=== PATIENT | female | born 1955 | race Caucasian/White ===

== ENCOUNTER 2019-05-05 08:42 | Inpatient (IN) ==
[2019-04-28 17:01] LABS: Appearance,Urine CLEAR; Bacteria,Urine 0 /hpf (0); Bilirubin,Urine NEG (NEG); Color,Urine YELLOW; Culture Indicated,Urine NO; Glucose,Urine (UA) NEGATIVE (NEG); Ketones,Urine NEG (NEG); Leukocyte Esterase,Urine 25 /uL (NEG); Mucus,Urine FEW /hpf (0); Nitrate,Urine NEG (NEG); Protein,Urine NEG (NEG); Specific Gravity,Urine 1.018 (1.000-1.035); Urine Blood NEG mg/dL (<0.03); Urine RBC 1 /hpf (0-1); Urine Squamous Epithelial Cell 8 /hpf (0-4); Urine Transitional Epi Cells < 1 /hpf (0-2); Urine WBC 3 /hpf (0-4)
[2019-04-28 18:08] LABS: Basophils # (Auto) 0 K/mcL (0.0-0.3); Basophils % (Auto) 0.2 % (0.0-2.0); Eosinophils # (Auto) 0.1 K/mcL (0.0-0.7); Eosinophils % (Auto) 1.7 % (0.0-7.0); Granulocytes % (Auto) 53.8 % (38.0-78.0); Hematocrit 38.2 % (36.0-48.0); Hemoglobin 12.2 g/dL (12.0-15.0); Lymphocytes % (Auto) 34.8 % (15.5-49.0); Mean Cell Volume 77.7 fL (80.0-100.0); Mean Corpuscular HGB Conc 31.9 g/dL (31.0-36.0); Mean Platelet Volume 9.4 fL (7.4-10.4); Monocytes # (Auto) 0.8 K/mcL (0.1-0.9); Monocytes % (Auto) 9.5 % (1.0-12.0); Platelet Count 259 K/mcL (140-440); RBC 4.92 M/mcL (4.00-5.20); Red Cell Distribution Width 16.6 % (11.5-14.5); WBC 8.6 K/mcL (4.5-11.0)
[2019-04-28 18:21] LABS: Blood Urea Nitrogen 14 mg/dl (8-23); Calcium 9.4 mg/dl (8.6-10.4); Carbon Dioxide 27 mmol/L (22-30); Chloride 99 mmol/L (96-108); Glomerular Filtration Rate 96; Glucose 114 mg/dL (70-105)
[2019-04-28 18:36] LABS: Estimated Average Glucose(eAG) 154 mg/dL
[2019-04-28 18:41] LABS: Prothrombin Time 12.8 sec (11.9-14.5)
[~2019-05-05 08:42] MED LIST: 0.9 % SODIUM CHLORIDE 9 ML, KETOROLAC 30 MG, ROPIVACAINE HCL/PF 49.5 ML, EPINEPHrine 0.... IJ SCH; CELECOXIB 200 MG CAPSULE PO SCH; PREGABALIN 75 MG CAPSULE PO SCH; ceFAZolin 3 GM in DEXTROSE 5% IN WATER 50 ML IV SCH; oxyCODONE 10 MG TAB.ER.12H PO SCH
[2019-05-05] MEDS ORDERED: DEXAMETHASONE 10 MG/ML VIAL IV ONE (13:45)
[2019-05-05] MEDS ORDERED: TRANEXAMIC ACID 1,000 MG/10 ML VIAL IV ONE (13:45)
[2019-05-05] MEDS ORDERED: LIDOCAINE HCL/PF 100 MG/5 ML SYRINGE IV ONE (13:45)
[2019-05-05] MEDS ORDERED: MIDAZOLAM 2 MG/2 ML VIAL IV ONE (13:45)
[2019-05-05] MEDS ORDERED: ROPIVACAINE HCL/PF 20 ML VIAL IJ ONE (13:45)
[2019-05-05] MEDS ORDERED: PROPOFOL 200 MG/20 ML VIAL IV ONE (13:45)
[2019-05-05] MEDS ORDERED: GLYCOPYRROLATE 0.2 MG/ML VIAL IV ONE (13:45)
[2019-05-05] MEDS ORDERED: KETAMINE 100 MG/ML ML IV ONE (13:45)
[2019-05-05] MEDS ORDERED: ONDANSETRON 4 MG/2 ML VIAL IV ONE (13:45)
[2019-05-05] MEDS ORDERED: fentaNYL 100 MCG/2 ML VIAL IV ONE (13:45)
[2019-05-05] MEDS ORDERED: PHENYLEPHRINE 10 MG/ML VIAL IV ONE (13:45)
[2019-05-05] MEDS ORDERED: BENZOCAINE/MENTHOL 1 LOZENGE PO PRN ×2 (15:36→15:45)
[2019-05-05] MEDS ORDERED: TRANEXAMIC ACID 1,000 MG/10 ML VIAL IV SCH (15:36)
[2019-05-05] MEDS ORDERED: DEXTROSE 50% 50 ML VIAL IV PRN (15:36)
[2019-05-05] MEDS ORDERED: ONDANSETRON 4 MG/2 ML VIAL IV PRN ×2 (15:36→15:45)
[2019-05-05] MEDS ORDERED: POLYETHYLENE GLYCOL 3350 17 GM PACKET PO PRN (15:36)
[2019-05-05] MEDS ORDERED: DEXTROSE 31 GM ORAL.SUSP PO PRN (15:36)
[2019-05-05] MEDS ORDERED: BISACODYL 10 MG SUPP.RECT PR PRN (15:36)
[2019-05-05] MEDS ORDERED: MAGNESIUM HYDROXIDE 30 ML ORAL.SUSP PO PRN (15:36)
[2019-05-05] MEDS ORDERED: FLEETS ADULT ENEMA PR PRN (15:36)
--- NOTE | 2019-05-05 15:36 | Brief Operative Note ---
Date of procedure: 05/05/19 Pre-op diagnosis: Left knee severe DJD Post-op diagnosis: same Procedure: Left robotic assisted total knee arthroplasty Grafts/Implants: Yes ([place] Triathlon CR 5 femur, 5 tibia, 12mm CS insert, 36 patella) Anesthesia: spinal, GLMA Findings: severe valgus knee Complications: none Surgeon: Raghavendra Cyr Electromechanical Inspector: Durga Pedersen Estimated blood loss (cc): 30 Specimens Removed/Pathology: none sent Condition: stable Disposition: PACU
[2019-05-05] MEDS ORDERED: LACTATED RINGERS 1,000 ML IV SCH (15:45)
[2019-05-05] MEDS ORDERED: NALOXONE HCL 0.4 MG/ML VIAL IV PRN (15:45)
[2019-05-05] MEDS ORDERED: ACETAMINOPHEN 1,000 MG/100 ML BOTTLE IV ONE (15:45)
[2019-05-05] MEDS ORDERED: LACTATED RINGERS 250 ML IV PRN (15:45)
[2019-05-05] MEDS ORDERED: FLUMAZENIL 0.1 MG/ML ML IV PRN (15:45)
[2019-05-05] MEDS ORDERED: METHOCARBAMOL 1,000 MG/10 ML VIAL IV PRN (15:45)
[2019-05-05] MEDS ORDERED: IPRATROPIUM/ALBUTEROL 3 ML AMPUL.NEB NEB PRN (15:45)
--- NOTE | 2019-05-05 16:29 | Operative Note ---
DATE OF OPERATION: 05/05/2019 PREOPERATIVE DIAGNOSIS: Left knee severe osteoarthritis [id number]. POSTOPERATIVE DIAGNOSIS: Left knee severe osteoarthritis [id number]. PROCEDURE PERFORMED: Left robotic-assisted total knee arthroplasty placing a [place]am Triathlon size 5 cruciate retaining femoral component, size 5 tibial baseplate, a 12 mm cruciate substituting insert with a 36 mm patellar button. SURGEON: Raghavendra Cyr M.D. CAMOUFLAGE SPECIALIST: Ramsey Pedersen PA-C. The PA's assistance was required for the safe and efficient completion of the entire case. This provider's expertise and technical skill were required throughout the case. The PA assisted with preoperative coordination, intraoperative retraction, wound closure, dressing and splint application, as well as postoperative documentation and care coordination. ANESTHESIA: Spinal plus general. DRAINS: None. SPECIMENS: Bone cuts which were discarded. BLOOD LOSS: 30 mL. COMPLICATIONS: None. POSTOPERATIVE CONDITION: Stable. INDICATIONS FOR SURGERY: This is a 64-year-old obese female who has had longstanding, progressive worsening, severe left knee pain. Radiographs showed dkal-wx-reiz osteoarthritis with valgus deformity. FINDINGS AT SURGERY: She had a significant valgus-deformed knee. Post-implantation showed satisfactory limb alignment, joint stability and patellar tracking. PROCEDURE IN DETAIL: The patient had been seen preoperatively and informed consent had been obtained after discussion of risks and benefits of surgery. Risks including, but not limited to, bleeding, possibly requiring transfusion; infection, possibly requiring implant removal and prolonged IV antibiotics, this being increased given her obesity and diabetes; incomplete or no resolution of symptoms; continued pain likely given her chronic narcotic use; anesthetic risks; DVT and pulmonary embolus risks; instability; clunking; possibility of needing further revision joint surgery. She understood these risks and wished to proceed. The correct operative site was marked and then patient received spinal anesthesia. She was then taken to the operating room and LMA general given. The left lower extremity was carefully prepped and draped in normal sterile fashion, and a time-out was performed verifying patient name, operative site, and plan. Esmarch was used to exsanguinate the extremity and tourniquet was inflated to 350 mmHg. Ioban was used to cover all skin surfaces and a standard midline incision was made with scalpel through skin and subcutaneous tissue. Hemostasis was obtained with Bovie cautery. Irrisept was irrigated and then a medial parapatellar arthrotomy made. A limited subperiosteal exposure was done of the anterior medial tibia. Retropatellar fat pad was excised, as well as anterior horn of the menisci. Her ACL was absent. The patella was then prepared, first measuring, and then freehand resecting an adequate amount to replace with implant. We then placed a cut protector. Femoral and tibial checkpoints were placed. We went ahead and made two stab incisions over the femur and two over the tibia and bicortical pins were placed. We then connected the arrays. Hip center of rotation was then checked. Green probe was used to identify medial and lateral malleoli and then to double-check our checkpoints. We then went ahead and used our blue probe to do our mapping. After this was completed, we went ahead and used a rongeur to remove osteophytes. We then checked our flexion-extension gaps. She had very large gaps, both flexion and extension. We had to move the tibia, so we were only resecting 1 mm of bone. We were able to get 17 mm gaps laterally in flexion and extension and medially in extension. Medial flexion was 19, but we did not want to internally rotate the femur, so we went ahead and then made our bone cuts with the robotic arm. We then prepared the tibia, externally rotating it as bone coverage would allow and pinned this into place. We then used a boss reamer and a keel punch to prepare and then a keeled tibial trial was placed. Femur was elevated and a curved osteotome used to remove posterior osteophytes. We also removed posterior horns of the menisci. The femur trial was then placed and then a 9 insert was placed which slid in easily. We went ahead and prepared the patella medializing it maximally and drilling the holes, and the trial was placed. A lateral facetectomy was performed. We checked our patellar tracking. It did have some tilt still so we went ahead and did a lateral retinacular release. She was also fairly tight on the IT band and still some gapping medially, so I pie-crusted the IT band with a 15 blade. We went ahead then and removed trial implants. Definitive implants were opened except for the tibial insert. We irrigated the joint with Irrisept. Antibiotic cement was mixed. After a minute of soaking in Irrisept, we pulse lavaged with saline. A CO2 gun was then used to clean and dry the cancellous bone surfaces. We did make some drill holes in the lateral tibial plateau, as this was sclerotic bone, to aid in cement interdigitation. We then cemented the tibia. Excess cement removed. We then cemented the femur and excess cement removed. A 9 insert trial was placed. The knee was taken into extension and then the patellar button was cemented. We went ahead and removed our checkpoints. We also removed our pins and arrays. We irrigated the joint with Irrisept and then injected pain cocktail into the pericapsular and subcutaneous tissues. After cement had fully hardened, we did a final inspection and removed any excess cement with an osteotome. She did have laxity medially, so I went ahead and trialed an 11 insert. This improved her stability. We trialed up to a 13, but we are unable to get the 13 in, so I went ahead and opened a 12 cruciate substituting given her weight and concern of possible failure of her posterior cruciate ligament in the future. We irrigated the tray with Irrisept and then impacted the 12 CS insert. We filled the joint with Irrisept and waited a minute. After that we then pulse lavaged copiously with saline. Interrupted #2 FiberWire [id number] were used around the superior quadrant of the patella, interrupted #1 Vicryl [id number] around the inferior quadrant, and running #1 Vicryl was used for patellar tendon and quad tendon. A final Irrisept irrigation was done, after a minute final pulse lavage, and then 2-0 Monocryl for subcutaneous and kwaku for skin. Xeroform and sterile dressing were applied. Tourniquet was released. The patient was awakened, extubated, and transferred to recovery in stable condition. KALIN:isela Job ID: [id number] Doc ID: [id number] Raghavendra Cyr MD
[2019-05-05] MEDS: fentaNYL 100 MCG/2 ML VIAL IV PRN ×2 (16:38→16:42)
--- NOTE | 2019-05-05 17:04 | XRay Report ---
CLINICAL INFORMATION: Post-op total knee COMPARISON: None. FINDINGS: Only prostheses is anatomically aligned. No osseous abnormality. Gas and soft tissue swelling seen at the expected IMPRESSION: Negative Interpreted and Authenticated by: Philip Arrington 05/05/19
[2019-05-05] MEDS: KETOROLAC 15 MG/ML VIAL IV SCH ×2 (17:29→23:55)
[2019-05-05] MEDS: HYDROmorphone 2 MG/ML VIAL IV PRN ×2 (17:29→20:09)
[2019-05-05] MEDS: 0.9 % SODIUM CHLORIDE 1,000 ML IV SCH (17:30)
[2019-05-05] MEDS: metFORMIN 500 MG TABLET PO SCH (18:01)
[2019-05-05] MEDS: HYDROcodone/APAP 10/325MG TABLET PO PRN (18:01)
[2019-05-05] MEDS: LISINOPRIL 10 MG TABLET PO SCH ×2 (18:01→20:43)
[2019-05-05] MEDS: INSULIN LISPRO 1 UNIT/0.01 ML UNIT SQ SCH ×2 (18:02→20:21)
[2019-05-05] MEDS: DOCUSATE SODIUM 100 MG CAPSULE PO SCH (20:09)
[2019-05-05] MEDS: ASPIRIN 81 MG TAB.CHEW PO SCH (20:09)
[2019-05-05] MEDS: ceFAZolin 1 GM VIAL IV SCH (20:21)
[2019-05-05] MEDS: 0.9 % SODIUM CHLORIDE 10 ML SYRINGE IV SCH (20:43)
[2019-05-05] MEDS ORDERED: METOPROLOL TARTRATE 25 MG TABLET PO PRN (20:48)
[2019-05-05] MEDS ORDERED: diphenhydrAMINE 25 MG CAPSULE PO SCH (21:00)
[2019-05-05] MEDS ORDERED: MELATONIN 3 MG TABLET PO SCH (21:00)
[2019-05-05] MEDS ORDERED: SENNOSIDES 1 TABLET PO SCH (21:00)
[2019-05-05] MEDS ORDERED: LORazepam 0.5 MG TABLET PO PRN (21:00)
[2019-05-05] MEDS ORDERED: SIMVASTATIN 40 MG TABLET PO SCH (21:00)
[2019-05-05] MEDS ORDERED: INSULIN GLARGINE, HUMAN 1 UNIT/0.01 ML SQ SCH (21:00)
[2019-05-05] MEDS: oxyCODONE 10 MG TAB.ER.12H PO PRN (21:26)
[2019-05-06] MEDS: HYDROcodone/APAP 10/325MG TABLET PO PRN ×3 (01:51→12:35)
[2019-05-06] MEDS: 0.9 % SODIUM CHLORIDE 1,000 ML IV SCH (02:41)
[2019-05-06] MEDS: ceFAZolin 1 GM VIAL IV SCH (03:34)
[2019-05-06] MEDS: KETOROLAC 15 MG/ML VIAL IV SCH ×2 (05:36→12:07)
[2019-05-06] MEDS: 0.9 % SODIUM CHLORIDE 10 ML SYRINGE IV SCH (05:37)
--- NOTE | 2019-05-06 06:57 | Discharge Summary ---
Providers - Providers Patient information: Note initiated : 05/06/19 at 6:54 am Service Date, if different from initiated Date: [] Patient: Caitie Devine 64 y/o F admitted on 05/05/19 for Left Robotic Total Knee Arthroplasty. Chief Complaint: [] Discharge date: 05/06/19 Hospitalization Hospital course: Pt was admitted for a L TKA. Pt admitted on the day of admission. Pt spent one night on the floor for IV abx, IV pain meds and PT. Discharged on post-op day 1. Will take ASA 81mg bid for DVT prophylaxis. F/u in 2 weeks. Discharge diagnosis: L knee OA Exam - Exam Clean and dry: No (mild bloody drainage) Weight bearing status: as tolerated Ortho Discharge - TKA - Patient Instructions Diet: Regular Diet Activity: activity as tolerated Total Knee Protocol: For Total Knee: Start ROM OJ with stationary bike or rocking chair. Work on gaining full extension of knee. Posterior dislocation precautions provided. Hip abductor strengthening and gait training instructions provided. Apply Cryocuff as instructed. Dressing Care: May shower in 2 days - Follow Up Plan Follow Up Appointments: Durga Pedersen PA-C [Physician Ehr Trainer] - 05/20/19 9:20 am Disposition: Home, Self-Care Prognosis: Good Rehab Potential: Good Overall status at discharge: patient is back to baseline - Orders For Discharge Prescriptions: Aspirin 81 mg PO BID #30 tab.chew HYDROcodone/APAP 10/325MG [Lincoln 10-325Mg] 1 - 2 tab PO Q4HP PRN #90 tab PRN Reason: Pain Level 3-6 Pending Studies Resuscitation Status Full Code Diet Consistent Carbohydrate Diet Start FriMay 05 1538 Hydrocodone Bitart/Acetaminophen (Lincoln 10/325mg) 0 tab PO Q4HP PRN PRN Reason: PAIN LEVEL 3-6 Last Admin: 05/06/19 05:53 Dose: 2 tab Documented by: Admin: 05/06/19 01:51 Dose: 2 tab Documented by: Admin: 05/05/19 18:01 Dose: 2 tab Documented by: TIMI Aspirin (Aspirin) 81 mg PO BID [facility] Last Admin: 05/05/19 20:09 Dose: 81 mg Documented by: MUSTAPHA Diagnostic Test (Pha) (Accu-Chek) 1 each FS ACHS [facility] Last Admin: 05/05/19 20:10 Dose: 1 each Documented by: Admin: 05/05/19 17:37 Dose: 1 each Documented by: TIMI Diphenhydramine HCl (Benadryl) [address] [facility] Last Admin: 05/05/19 20:09 Dose: 25 mg Documented by: MUSTAPHA Docusate Sodium (Colace) 100 mg PO BID [facility] Last Admin: 05/05/19 20:09 Dose: 100 mg Documented by: MUSTAPHA Hydromorphone HCl (Dilaudid) 0 mg IV Q2HP PRN PRN Reason: PAIN LEVEL > 6 Last Admin: 05/05/19 20:09 Dose: 2 mg Documented by: Admin: 05/05/19 17:29 Dose: 0.5 mg Documented by: TIMI Insulin Glargine (Lantus) [address] [facility] Last Admin: 05/05/19 20:09 Dose: 40 unit Documented by: MUSTAPHA Insulin Human Lispro (Humalog) 0 unit SQ [facility]; Protocol Last Admin: 05/05/19 20:21 Dose: 10 units Documented by: Admin: 05/05/19 18:02 Dose: 6 units Documented by: TIMI Ketorolac Tromethamine (Toradol) 15 mg IV Q6 [facility] Stop: 05/07/19 12:01 Last Admin: 05/06/19 05:36 Dose: 15 mg Documented by: Admin: 05/05/19 23:55 Dose: 15 mg Documented by: Admin: 05/05/19 17:29 Dose: 15 mg Documented by: TIMI Lisinopril (Zestril) [address] [facility] Last Admin: 05/05/19 20:43 Dose: Not Given Documented by: Admin: 05/05/19 18:01 Dose: 10 mg Documented by: TIMI Lorazepam (Ativan) 0.5 mg PO [facility] PRN PRN Reason: Sleep Last Admin: 05/05/19 23:58 Dose: 0.5 mg Documented by: MUSTAPHA Melatonin (Melatonin 3mg Tablet) [address] [facility] Last Admin: 05/05/19 20:10 Dose: 3 mg Documented by: MUSTAPHA Metformin HCl (Glucophage) 500 mg PO TIDCC [facility] Last Admin: 05/05/19 18:01 Dose: 500 mg Documented by: TIMI Metoprolol Tartrate (Lopressor) 25 mg PO BIDP PRN PRN Reason: Hypertension Last Admin: 05/05/19 21:26 Dose: 25 mg Documented by: MUSTAPHA Oxycodone HCl (Oxycontin) 10 mg PO BIDP PRN PRN Reason: Pain >8 Last Admin: 05/05/19 21:26 Dose: 10 mg Documented by: MUSTAPHA Senna (Senokot) 2 tab PO HS [facility] Last Admin: 05/05/19 20:09 Dose: 2 tab Documented by: MUSTAPHA Simvastatin (Zocor) [address] [facility] Last Admin: 05/05/19 20:10 Dose: 40 mg Documented by: MUSTAPHA Sodium Chloride (Saline Flush) 10 ml IV Q8 [facility] Last Admin: 05/06/19 05:37 Dose: 10 ml Documented by: Admin: 05/05/19 20:43 Dose: Not Given Documented by: MUSTAPHA Shift Summary 05/06/19 02:36 Shift Summary by Corry De La Rosa A&O x4 but will repeat stories. Pt is a former [employer]. Pt struggled with pain management this shift - oxycontin 10mg now ordered BIDP for pain >8. Pt also medicated with dilaudid x1, Lincoln 2 tabs x2. Pt had hypertension (systolic 170- 210) - metoprolol 25mg given. Pt straight cath'd for 600 at 2330. Pt struggles with urinary frequency and retention at home. Bladder scan at 0200 was 0. Josiah wrap to L knee was reinforced 05/05 day shift for bleeding, but has remained C/D/I this shift. Pt maintains O2 sats while awake, but placed on 2L NC while sleeping for desaturations. HS blood sugar was 321. Pt ambulated back and forth from bathroom several times but not in sharif this shift. Pt has hx of multiple back surgeries making it hard to lay on her back. She needs many reminders to keep knee straight. Initialized on 05/06/19 02:36 - END OF NOTE
[2019-05-06] MEDS ORDERED: GLIMEPIRIDE 2 MG TABLET PO SCH (07:30)
[2019-05-06] MEDS ORDERED: LEVOTHYROXINE 125 MCG TABLET PO SCH (07:30)
[2019-05-06] MEDS ORDERED: OMEPRAZOLE 20 MG CAPSULE PO SCH (07:30)
[2019-05-06] MEDS ORDERED: CARVEDILOL 12.5 MG TABLET PO SCH (08:00)
[2019-05-06] MEDS: INSULIN LISPRO 1 UNIT/0.01 ML UNIT SQ SCH ×2 (08:23→11:18)
[2019-05-06] MEDS: metFORMIN 500 MG TABLET PO SCH ×2 (08:23→12:06)
[2019-05-06] MEDS: ASPIRIN 81 MG TAB.CHEW PO SCH (08:23)
[2019-05-06] MEDS: DOCUSATE SODIUM 100 MG CAPSULE PO SCH (08:23)
[2019-05-06] MEDS: oxyCODONE 10 MG TAB.ER.12H PO PRN (08:53)
== END 2019-05-06 14:15 | disposition home or self-care (01) | DRG 470 ==
LOC: MEDSUR 08:42
PROVIDERS: ADMIT Orthopaedic Surgery; ATTEND Orthopaedic Surgery